=== PATIENT | male | born 1935 | race Caucasian/White ===

== ENCOUNTER 2017-05-24 18:21 | Emergency (ER) | payer OTHER ==
[~2017-05-24] VITALS: Ht 175.3 cm; Wt 93.0 kg
[~2017-05-24 18:21] MED LIST: ZOFRAN ODT4 MG PO
[2017-05-24] MEDS ORDERED: BLOOD PRESSURE (18:33)
[2017-05-24] MEDS ORDERED: AUGMENTIN 875-1 EACH PO (19:18)
[2017-05-24 19:31] VITALS: BP 135/90
== END 2017-05-24 19:40 | disposition home or self-care (01) ==
LOC: M.ERS 18:21
DX: S61.215A Laceration without foreign body of left ring finger without damage to nail, initial encounter (principal); K21.9 Gastro-esophageal reflux disease without esophagitis; Z85.820 Personal history of malignant melanoma of skin; Z85.038 Personal history of other malignant neoplasm of large intestine; Z91.041 Radiographic dye allergy status; W54.0XXA Bitten by dog, initial encounter; Y93.89 Activity, other specified; Y92.89 Other specified places as the place of occurrence of the external cause; Y99.8 Other external cause status

== ENCOUNTER 2020-01-22 08:13 | Observation (INO) | payer OTHER ==
[~2020-01-22] VITALS: Ht 175.3 cm; Wt 94.3 kg
[~2020-01-22 08:13] MED LIST changes: +AMLOD/BENAZP PO; +AUGMENTIN 875-1 EACH PO
[2020-01-22 08:17] VITALS: BP 215/91
[2020-01-22 08:34] LABS: ABSOLUTE BASOPHILS 0.1 thou/uL (0.0-0.2); ABSOLUTE EOSINOPHILS 0.3 thou/uL (0.0-0.7); ABSOLUTE LYMPHOCYTES 2.8 thou/uL (0.8-5.3); ABSOLUTE MONOCYTES 0.7 thou/uL (0.0-1.2); ABSOLUTE NEUTROPHILS 3.3 thou/uL (1.6-8.1); BASOPHILS 1.1 %; EOSINOPHILS 3.6 %; HEMATOCRIT 38.9 % (42.0-52.0); HEMOGLOBIN 13.2 gm/dL (14.0-18.0); LYMPHOCYTES 39.8 %; MCH 30.6 pg (26.0-34.0); MCV 89.9 fL (80.0-100.0); MONOCYTES 9.9 %; MPV 9.7 fl. (7.2-11.1); NUCLEATED RBCS 0 /100WBC; PLATELET COUNT* 180 thou/uL (150-400); POLYS 45.6 %; RBC 4.33 mil/uL (4.50-6.00); RDW-CV 14.5 % (10.5-14.5); WBC 7.1 thou/uL (4.0-11.0)
[2020-01-22 08:53] LABS: CALCIUM 8.2 mg/dL (8.5-10.1); CREATININE 1.7 mg/dL (0.6-1.3); POTASSIUM 4.1 mmol/L (3.5-5.1)
[2020-01-22 09:02] LABS: ALBUMIN 3.5 g/dL (3.4-5.0); MAGNESIUM 2.1 mg/dL (1.8-2.4); TOTAL BILIRUBIN 0.7 mg/dL (<0.1-1.0); TOTAL PROTEIN 6.4 g/dL (6.4-8.2)
--- NOTE | 2020-01-22 11:42 | EKG ---
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[id number] Requested By: Anil Arcos Order Number: [id number] MD: Thierry Mcelroy Measurements Intervals [place] Rate: 73 P: 86 GA: 191 QRS: -12 QRSD: 96 T: 35 QT: 384 QTc: 424 Interpretive Statements Sinus rhythm Multiform ventricular premature complexes Compared to ECG 02/05/2010 09:49:52 Ventricular premature complex(es) now present Sinus bradycardia no longer present Electronically Signed On 01-22-2020 11:42:07 CDT by Thierry Mcelroy [email or web address] <ELECTRONICALLY SIGNED> By: Thierry Mcelroy MD, [facility] 01/22/20 1142 6 6 Thierry Mcelroy MD, [facility] /EPI
[2020-01-22 12:40] LABS: CHOLESTEROL 186 mg/dL (<200); HDL CHOLESTEROL 42 mg/dL (>40); LDL CHOLESTEROL 133 mg/dL (<100); TC:HDL 4.4 Ratio (Not establshd); TRIGLYCERIDE 57 mg/dL (<150); VLDL 11 mg/dL (<40)
[2020-01-22 12:43] LABS: SERUM ASSESSMENT Clear
[2020-01-22 14:35] VITALS: BP 178/81
[2020-01-22 14:43] VITALS: BP 175/66
[2020-01-22 20:00] VITALS: BP 156/71
[2020-01-22 20:35] VITALS: BP 131/75
[2020-01-22 20:40] VITALS: BP 145/73
[2020-01-23] VITALS: BP 130/52
[2020-01-23 02:06] LABS: GLYCOHEMOGLOBIN (HGB A1C) 5.6 % (4.8-5.6)
[2020-01-23 04:00] VITALS: BP 143/65
[2020-01-23 05:15] LABS: HEMATOCRIT 35.9 % (42.0-52.0); HEMOGLOBIN 12.3 gm/dL (14.0-18.0); MCH 30.7 pg (26.0-34.0); MCHC 34.2 g/dL (28.0-37.0); MCV 89.7 fL (80.0-100.0); MPV 10.2 fl. (7.2-11.1); RDW-CV 14.2 % (10.5-14.5); WBC 5.7 thou/uL (4.0-11.0)
[2020-01-23 06:45] LABS: CALCIUM 7.8 mg/dL (8.5-10.1); CREATININE 1.6 mg/dL (0.6-1.3); POTASSIUM 3.9 mmol/L (3.5-5.1)
[2020-01-23] MEDS ORDERED: LIPITOR 10 MG10 M1 PO (07:00)
[2020-01-23] MEDS ORDERED: ASA81BEC PO (07:05)
[2020-01-23 08:00] VITALS: BP 163/79
--- NOTE | 2020-01-23 10:34 | 2DMMODE ---
[place] [address] 2 D/M-MODE ECHOCARDIOGRAM Name: MAJO MCKINNEY Room: [address] Donna#: [id number] Admission: 01/22/20 Attend Phys: Le Saldivar, Discharge: Date of : 37 Date of Service: 01/23/20 1034 Report #: [id number] THIS REPORT FOR: cc: Simon Terrazas MD, Anthony MD Blick,Thierry Clayton MD [facility] ~ APPROVED REPORT Study performed: 01/22/2020 15:51:48 EXAM: Comprehensive 2D, Doppler, and color-flow Echocardiogram Patient Location: Bedside BSA: 2.11 HR: 62 bpm BP: 178/81 mmHg Other Information Study Quality: Adequate Indications Chest Pain 2D Dimensions IVSd: 15.25 (7-11mm) LVOT Diam: 19.35 (18-24mm) LVDd: 43.79 mm PWd: 12.16 (7-11mm) Ascending Ao: 32.46 (22-36mm) LVDs: 33.99 (25-40mm) Aortic Root: 34.57 mm Volumes Left Atrial Volume (Systole) LA ESV Index: 28.80 mL/m2 Aortic Valve AoV Peak Paul.: 0.94 m/s AO Peak Gr.: 3.56 mmHg LVOT Max P.75 mmHg AO Mean Gr.: 1.93 mmHg LVOT Mean P.72 mmHg LVOT Max V: 0.97 m/s AO V2 VTI: 21.11 cm LVOT Mean V: 0.59 m/s JORDYN (VTI): 3.30 cm2 LVOT V1 VTI: 23.72 cm Mitral Valve E/A Ratio: 0.90 [place] [address] 2 D/M-MODE ECHOCARDIOGRAM Name: HANKMAJO Adrian Room: [address] MReynaldoRReynaldo#: [id number] Admission: 01/22/20 Attend Phys: Le Saldivar, Discharge: Date of : 37 Date of Service: 01/23/20 1034 Report #: [id number] MV Decel. Time: 354.30 ms MV E Max Paul.: 1.00 m/s MV PHT: 102.75 ms MVA (PHT): 2.14 cm2 TDI E/Lateral E': 10.00 E/Medial E': 16.67 Medial E' Paul.: 0.06 m/s Lateral E' Paul.: 0.10 m/s Pulmonary Valve PV Peak Paul.: 1.00 m/s PV Peak Gr.: 3.99 mmHg Tricuspid Valve RAP Estimate: 15.00 mmHg TR Peak Gr.: 34.42 mmHg RVSP: 49.42 mmHg PA Pressure: 49.42 mmHg Left Ventricle The left ventricle is normal size. There is normal LV segmental wall motion. Mild concentric left ventricular hypertrophy. Left ventricular systolic function is normal. The left ventricular ejection fraction is within the normal range. LVEF is 60-65%. Grade I - abnormal relaxation pattern. Right Ventricle The right ventricle is normal size. The right ventricular systolic function is normal. Atria The left atrium size is normal. The right atrium size is normal. Aortic Valve The Aortic valve is sclerotic. Trace aortic regurgitation. There is no aortic valvular stenosis. Mitral Valve There is mitral annular calcification. Trace mitral regurgitation. No evidence of mitral valve stenosis. Tricuspid Valve The tricuspid valve is normal in structure. Trace tricuspid regurgitation[place] [address] 2 D/M-MODE ECHOCARDIOGRAM Name: MAJO MCKINNEY Room: [address]#: [id number] Admission: 01/22/20 Attend Phys: Le Saldivar, Discharge: Date of : 37 Date of Service: 01/23/20 1034 Report #: [id number] Pulmonic valve is not well visualized. There is no pulmonic valvular regurgitation. Great Vessels The aortic root is normal in size. IVC is dilated. Pericardium There is no pericardial effusion. <Conclusion> Mild concentric left ventricular hypertrophy. LVEF is 60-65%. <ELECTRONICALLY SIGNED> By: Thierry Mcelroy MD, FACC 01/23/20 1034 Thierry Mcelroy MD, FACC /INF
[2020-01-23 15:36] VITALS: BP 163/79
--- NOTE | 2020-01-26 14:32 | EXE ---
[place] [address] STRESS ECHOCARDIOGRAM Name: MAJO MCKINNEY [address] [id number] Admission: 01/22/20 Attend Phys: Le Saldivar, Discharge: 01/23/20 Date of : 37 Date of Service: 01/23/20 1459 Report #: [id number] THIS REPORT FOR: cc: Simon Terrazas MD, Anthony MD Blick,Thierry Clayton MD [facility] ~ APPROVED REPORT Study performed: 01/23/2020 11:59:31 Exam: Dobutamine Stress Echo Indication: Chest pain , Hypertension Stress Nurse: Florecita Lima RN Supervising Physician: Thierry Mcelroy MD Ht: 5 ft 9 in HR: 69 bpm BP: 153/87 mmHg Medical History Cardiac Risk Factors: HTN, Hyperlipidemia, Tobacco History (Former) Procedure The patient underwent a Pharmacological Stress Test using Dobutamine. Blood pressure, heart rate, and EKG were monitored. An Echocardiogram was performed by dialysis technician in four stages in quad fashion. At peak stress, four selected images were obtained and placed side by side with resting images for comparison. Stress Test Details Stress Test: Pharmacological Stress Test using Dobutamine. HR Resting HR: 69 bpm Max Heart Rate (APMHR): 137 bpm Max HR Achieved: 121 bpm Target HR (85% APMHR): 116 bpm % of APMHR: 88 Recovery HR: 93 bpm HR response to stress: Normal HR response to stress BP Resting BP: 153/87 mmHg Max BP: 201/74 mmHg Recovery BP: 160/70 mmHg BP response to stress: [place] [address] STRESS ECHOCARDIOGRAM Name: MJAO MCKINNEY Room: [address]#: [id number] Admission: 01/22/20 Attend Phys: Le Saldivar, Discharge: 01/23/20 Date of : 37 Date of Service: 01/23/20 1459 Report #: [id number] stress. ECG Resting ECG: Sinus Rhythm Stress ECG: Sinus Tachycardia ST Change: Normal Maximum ST Deviation: 0 mm Arrhythmia: VPC's Recovery ECG: Sinus Rhythm Recovery ST Change: Normal Recovery ST Deviation: 0 mm Recovery Arrhythmia: VPC Clinical Exercise duration: 7 min 21 sec Exercise capacity: 1.0 METs Pre-Stress Echo The resting Echocardiogram showed normal left ventricular contractility with an estimated Ejection Fraction of about 55-60%. Post-Stress Echo The stress Echocardiogram showed normal left ventricular contractility with an estimated Ejection Fraction of about 65-70%. Compared to rest, there were no stress-induced wall motion abnormalities. Conclusion Clinical Response: Non-ischemic Stress ECG Response: Non-ischemic Stress Echo Images: Non-ischemic low risk dobutamine stress echo for predicting future cardiac events Other Information Study Quality: Adequate <Conclusion> low risk dobutamine stress echo for predicting future cardiac events <ELECTRONICALLY SIGNED> By: Thierry Mcelroy MD, FACC 01/23/20 1459 58 145 Thierry Mcelroy MD, FACC /INF
== END 2020-01-23 16:15 | disposition home or self-care (01) ==
LOC: M.ERS 08:13 → M.TBA-ER 10:00 → M.2W 10:00
PROVIDERS: Emergency Medicine Emergency Medical Services; ADMIT Internal Medicine; ATTEND Internal Medicine
DX: R07.89 Other chest pain (principal); I16.0 Hypertensive urgency; K85.90 Acute pancreatitis without necrosis or infection, unspecified; R73.02 Impaired glucose tolerance (oral); N17.9 Acute kidney failure, unspecified; E78.5 Hyperlipidemia, unspecified; Z79.82 Long term (current) use of aspirin; Z79.899 Other long term (current) drug therapy; Z20.828 Contact with and (suspected) exposure to other viral communicable diseases